=== PATIENT | female | born 1950 | race Caucasian/White ===

== ENCOUNTER 2016-10-26 10:44 | Emergency (ER) | payer OTHER ==
[2016-10-26] MEDS ORDERED: IOPAMIDOL 370 (76%) 100 ML VIAL IV ONE (10:45)
[2016-10-26] MEDS ORDERED: ADENOSINE 6MG/2ML 2 ML VIAL IV ONE (11:27)
[2016-10-26] MEDS ORDERED: SODIUM CHLORIDE 0.9% 1,000 ML ONE (11:27)
[2016-10-26 11:38] LABS: BASO # 0.1 K/mm3 (0.0-0.2); BASO % 1.1 % (0.2-1.0); EOS % 0.5 % (0.9-2.9); HEMATOCRIT 40.3 % (37.0-47.0); IMM NEUT% 0.5 % (0-1); LYMPH # 0.7 (1.0-4.8); MEAN CELL VOLUME 89.2 fl (81.0-99.0); MEAN CORPUSCULAR HEMOGLOBIN 28.8 pg (27.0-31.0); MEAN CORPUSCULAR HGB CONC 32.3 g/dl (33.0-37.0); MEAN PLATELET VOLUME 10.6 fl (7.4-10.4); MONO # 0.9 (0.0-0.8); MONO % 15.3 % (4-12); NEUT % 69.6 % (43-75); PLATELET COUNT 275 K/mm3 (130-400); RED CELL DISTRIBUTION WIDTH 12.6 % (11.5-14.5)
[2016-10-26 11:46] LABS: ALB/GLOB RATIO 1.1 (>1.0); CALCIUM 9.3 mg/dL (8.6-10.3); MAGNESIUM 1.7 mg/dL (1.9-2.7)
[2016-10-26 11:52] LABS: TROPONIN I 0.01 ng/ml (0.0-0.06)
--- NOTE | 2016-10-26 14:37 | CT ---
CHEST CTA HISTORY: Cough, atrial fibrillation. TECHNIQUE: Following the administration of 80 mL Isovue-370 intravenous contrast, contiguous axial images were acquired from the thoracic inlet to the diaphragmatic hiatus for CT pulmonary angiography. Three-dimensional reformatted imaging was not performed. FINDINGS: PULMONARY ARTERIAL TREE: Technically adequate enhancement: No dominant filling defects. THORACIC AORTA: Normal caliber. No evidence of dissection. LUNGS: No gross airspace abnormality. No pleural effusion. 2 mm right upper lobe nodule, image 22, 3 mm right upper lobe nodule, image 28. NOHELIA AND MEDIASTINUM: No abnormally enlarged lymph nodes. AXILLAE: No grossly enlarged lymph nodes. UPPER ABDOMEN: No gross mass effect. Incompletely depicted fatty lesion of the right upper renal pole suggesting a small leiomyoma, at least 5 mm in size. OSSEOUS STRUCTURES: Minor changes of thoracic disc degeneration. No vertebral compression deformity or destructive lesion. IMPRESSION: 1. No CTA evidence of proximal order pulmonary embolus. 2. No gross airspace disease, pleural effusion, or pneumothorax. 3. Small subcentimeter nodules of the right upper lobe, recommend one-year follow-up CT examination if the patient has a smoking history or personal history of neoplasm. 4. Findings of thoracic disc degeneration. Results were electronically transmitted to the electronic medical record at 10/26/2016 at 1434 hours.
[2016-10-26] MEDS ORDERED: METOPROLOL TARTRATE 50 MG TABLET ONE (15:20)
== END 2016-10-26 15:29 | disposition home or self-care (01) ==
LOC: ED 10:44
DX: I48.92 Unspecified atrial flutter (principal); J06.9 Acute upper respiratory infection, unspecified; J45.909 Unspecified asthma, uncomplicated